=== PATIENT | male | born 1960 | race Caucasian/White ===

== ENCOUNTER → 2023-03-29 | Outpatient (CLI) | payer MEDICAID, SELFPAY ==
--- NOTE | 2023-03-29 11:30 | US_ITS ---
STUDY: ABDOMINAL ULTRASOUND -ascites survey. REASON FOR VISIT: Male, 63 years old ASCITES TECHNIQUE: Ultrasound evaluation of the 4 quadrant was performed with real-time and static palacio-scale imaging. TECHNICAL QUALITY: Adequate. COMPARISON: None. FINDINGS: The abdomen was evaluated for possible ascites. No ascites is seen. US/Abdomen Limited IMPRESSION: No ascites is seen. Electronically Signed: Gato Alvarado MD at 12:44 EST ,
== END | disposition home or self-care (01) ==
PROVIDERS: PCP Internal Medicine Infectious Disease; Referring Provider Internal Medicine Gastroenterology; Visit Provider Internal Medicine Gastroenterology
DX: R18.8 Other ascites (principal)
CPT/HCPCS: 76705

== ENCOUNTER → 2024-07-19 | Outpatient (CLI) | payer MEDICAID, SELFPAY | END | disposition home or self-care (01) | PROVIDERS: PCP Internal Medicine Infectious Disease; Referring Provider Nurse Practitioner Acute Care; Visit Provider Nurse Practitioner Acute Care | DX: J44.9 Chronic obstructive pulmonary disease, unspecified (principal) | CPT/HCPCS: 94060; 94726; 94729 ==

== ENCOUNTER → 2024-08-02 | Outpatient (CLI) | payer MEDICAID, SELFPAY ==
--- NOTE | 2024-08-02 08:45 | US_ITS ---
PROCEDURE: ABDOMEN LIMITED (USABDL), 08/02/2024 REASON FOR EXAM: CIRRHOSIS COMPARISON: None. Exam dated 03/29/2023 could not be retrieved at the time of dictation however the report is reviewed. FINDINGS: Exam limited by soft tissue attenuation. Liver: Heterogeneous, coarsened echotexture with serosal nodularity. 19.2 cm in length. Irregular LEFT lobe cyst measures 1.5 x 2.0 x 1.6 cm. Gallbladder: Distended/hydropic without visualized stones, sludge, wall thickening or pericholecystic fluid. Reportedly, sonographic Crouch's was negative. Biliary tree: Unremarkable. CBD measures 4 mm. Pancreas: Partially obscured by shadowing bowel gas, grossly unremarkable as visualized. Right kidney: Cysts up to 6.7 x 6.6 x 5.0 cm. 14.4 cm in length. Other: No visualized free fluid. US/Abdomen Limited IMPRESSION: 1. Cirrhosis with hepatomegaly. No visualized solid hepatic lesion or ascites. 2. Distended/hydropic gallbladder without visualized cholelithiasis or findings to suggest cholecystitis. No biliary dilatation. 3. Additional description as above. Reading Location: [id number]
== END | disposition home or self-care (01) ==
LOC: US 08:41
PROVIDERS: PCP Internal Medicine Infectious Disease; Referring Provider Internal Medicine Gastroenterology; Visit Provider Internal Medicine Gastroenterology
DX: K74.60 Unspecified cirrhosis of liver (principal)
CPT/HCPCS: 76705